=== PATIENT | male | born 1960 ===

== ENCOUNTER 2016-12-27 08:21 | Emergency (ER) | payer OTHER ==
--- NOTE | 2016-12-27 08:57 | UC ---
Respiratory Complaint HPI - HPI Summary HPI Summary: head cold x 2 weeks ago, improved, but yesterday developed sore throat and sense of congestion in his throat. Has a non-productive cough, but no chest pain or shortness of breath. Left work yesterday and slept, with some improvement today. No fever, headache, nausea or vomiting. - History of Current Complaint Chief Complaint: UCRespiratory Stated Complaint: SORE THROAT CHEST HEAVINESS Time Seen by Provider: 12/27/16 08:46 Hx Obtained From: Patient Onset/Duration: Gradual Onset, Lasting Days - 2 Timing: Constant Associated Signs And Symptoms: Positive: URI, Nasal Congestion - Risk Factors Pulmonary Embolism Risk Factors: Smoking Cardiac Risk Factors: Hypertension, Smoking - Allergies/Home Medications Allergies/Adverse Reactions: Allergies Allergy/AdvReac Type Severity Reaction Status Date / Time No Known Allergies Allergy Verified 12/27/16 08:28 Home Medications: Home Medications Amlodipine Besylate [Norvasc-] 5 mg PO DAILY 12/27/16 [History Confirmed ] Atorvastatin* [Lipitor*] 20 mg PO DAILY 12/27/16 [History Confirmed 12/27/16] Ibuprofen [Advil] 600 mg PO ONCE PRN 12/27/16 [History Confirmed 12/27/16] Metoprolol Succinate [Toprol Xl] 100 mg PO DAILY 12/27/16 [History Confirmed 12/14] PMH/Surg Hx/FS Hx/Imm Hx Endocrine History Of: Reports: Dyslipidemia Cardiovascular History Of: Reports: Hypertension - Surgical History Surgical History: Yes Surgery Procedure, Year, and Place: facial surgery-no feeling in Rt side of chin , clavical and ankle broken and reconstruction - Family History Known Family History: Positive: Cardiac Disease - father of stroke/atrial fibrillation., Other - mother living, age 85, healthy - Social History 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 Alcohol Use: None Substance Use Type: None Smoking Status (MU): Current Every Day Smoker Type: Cigars Amount Used/How Often: 4 pipes daily - Immunization History Most Recent Influenza Vaccination: not this season Review of Systems Constitutional: Fatigue Skin: Negative Eyes: Negative ENT: Sore Throat Respiratory: Cough Cardiovascular: Negative Gastrointestinal: Negative Genitourinary: Negative Motor: Negative Neurovascular: Negative Musculoskeletal: Negative Neurological: Negative Psychological: Negative All Other Systems Reviewed And Are Negative: Yes Physical Exam Triage Information Reviewed: Yes Appearance: Ill-Appearing - mildly unwell Vital Signs: Initial Vital Signs Temp 98.2 F 12/27/16 08:32 Pulse 57 12/27/16 08:32 Resp 18 12/27/16 08:32 BP 154/96 12/27/16 08:32 Pulse Ox 98 12/27/16 08:32 Eyes: Positive: Conjunctiva Clear ENT: Positive: Pharyngeal erythema, TMs normal Neck: Positive: Supple, Nontender, No Lymphadenopathy Respiratory: Positive: Lungs clear, Normal breath sounds Cardiovascular: Positive: RRR, No Murmur Psychological Exam: Normal UC Diagnostic Evaluation - Laboratory O2 Sat by Pulse Oximetry: 98 Respiratory Course/Dx - Course Course Of Treatment: symptomatic treatment; guaifensin as expectorant. - Differential Dx/Diagnosis Differential Diagnosis/HQI/PQRI: Bronchitis, Laryngitis, Lower Resp Infection, Sinusitis Provider Diagnoses: pharyngitis/laryngitis. Discharge - Discharge Plan Condition: Stable Disposition: HOME Patient Education Materials: Laryngitis (ED) Forms: *Work Release Additional Instructions: Guaifensin (600mg twice daily) might help with to relieve the phlegm in your throat. Use acetaminophen as needed for pain control. Follow up if you develop fever or shortness of breath.
[2016-12-27 09:17] VITALS: BP 150/106
== END 2016-12-27 09:17 | disposition home or self-care (01) ==
LOC: UCCORT 08:21
DX: J02.9 Acute pharyngitis, unspecified (principal); J04.0 Acute laryngitis; I10 Essential (primary) hypertension; F17.210 Nicotine dependence, cigarettes, uncomplicated
CPT/HCPCS: 99212; G0463

== ENCOUNTER 2017-04-25 07:23 | Emergency (ER) | payer OTHER ==
[2017-04-25 07:38] VITALS: BP 158/92
--- NOTE | 2017-04-25 08:44 | UC ---
Eye Complaint HPI - HPI Summary HPI Summary: 56 yo male with stye left upper lid x days now lid swollen and red and lids matted shut this am no fever no visual c/o - History of Current Complaint Chief Complaint: UCEye Stated Complaint: LEFT EYE COMPLAINT Time Seen by Provider: 04/25/17 08:16 Hx Obtained From: Patient Onset/Duration: Gradual Onset, Lasting Hours Timing: Constant Severity Initially: Mild Severity Currently: Moderate Pain Intensity: 2 Pain Scale Used: 0-10 Numeric Location of Injury: Eye Lid (upper) Character: Dull Aggravating Factor(s): Other - touch Associated Signs And Symptoms: Positive: Drainage (Purulent) - Allergies/Home Medications Allergies/Adverse Reactions: Allergies Allergy/AdvReac Type Severity Reaction Status Date / Time No Known Allergies Allergy Verified 04/25/17 07:33 PMH/Surg Hx/FS Hx/Imm Hx Previously Healthy: Yes Cardiovascular History: Hypertension - Surgical History Surgical History: Yes Surgery Procedure, Year, and Place: facial surgery-no feeling in Rt side of chin , clavical and ankle broken and reconstruction - Family History Known Family History: Positive: Cardiac Disease - father of stroke/atrial fibrillation., Hypertension, Other - mother living, age 85, healthy - Social History Alcohol Use: None Substance Use Type: None Smoking Status (MU): Current Every Day Smoker Type: Cigars Amount Used/How Often: 4 pipes daily - Immunization History Most Recent Influenza Vaccination: not this season Review of Systems Constitutional: Negative Skin: Negative Eyes: Other - left upper eyelid pain/swelling ENT: Negative Respiratory: Negative Cardiovascular: Negative Gastrointestinal: Negative Genitourinary: Negative Motor: Negative Neurovascular: Negative Musculoskeletal: Negative Neurological: Negative Psychological: Negative All Other Systems Reviewed And Are Negative: Yes Physical Exam Triage Information Reviewed: Yes Appearance: Well-Appearing, No Pain Distress, Well-Nourished Vital Signs: Initial Vital Signs Temp 97.8 F 04/25/17 07:31 Pulse 54 04/25/17 07:31 Resp 16 04/25/17 07:31 BP 158/92 04/25/17 07:31 Pulse Ox 100 04/25/17 07:31 Vital Signs Reviewed: Yes Eyes: Positive: Conjunctiva Clear, Other: - left lid swollen and red, no chalazion, he has a stye ENT: Positive: Hearing grossly normal, Pharynx normal, TMs normal. Negative: Nasal congestion, Nasal drainage, Tonsillar swelling, Tonsillar exudate, Trismus Neck: Positive: Supple, Nontender, No Lymphadenopathy Respiratory: Positive: Lungs clear, Normal breath sounds, No respiratory distress Cardiovascular: Positive: RRR, No Murmur. Negative: Tachycardia, Bradycardia Musculoskeletal: Positive: No Edema Neurological: Positive: Alert Psychological Exam: Normal Skin Exam: Normal Eye Complaint Course/Dx - Differential Dx/Diagnosis Provider Diagnoses: left upper lid stye and lid cellulitis Discharge - Discharge Plan Condition: Stable Disposition: HOME Prescriptions: Cephalexin CAP* [Keflex CAP*] 500 mg PO QID #20 cap Erythromycin OPHTH.OINT* [Ilotycin OPHTH.OINT*] 1 applic LEFT EYE QID #1 ophth.oint Patient Education Materials: Cellulitis (ED), Stye (ED) Referrals: Joe Chavez MD [Primary Care Provider] - Additional Instructions: warm compresses recheck in 4 days if not better
== END 2017-04-25 08:27 | disposition home or self-care (01) ==
LOC: UCCORT 07:23
DX: H00.014 Hordeolum externum left upper eyelid (principal); H00.034 Abscess of left upper eyelid; F17.290 Nicotine dependence, other tobacco product, uncomplicated
CPT/HCPCS: 99212; G0463

== ENCOUNTER 2017-09-28 08:37 | Emergency (ER) | payer OTHER ==
[2017-09-28 09:07] VITALS: BP 141/100
--- NOTE | 2017-09-28 10:02 | UC ---
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 TWO DAYS AGO EYE WAS PAINFUL , SWELLING WORSE TODAY. USED WARM PACKS WITH LITTLE RELIEF." Has had this happened. he was in earlier this yr w. similar sx and was treated w / abx and po and abx ointment w. good relief. denies trauma, no pain. no change in vision. no FB - History of Current Complaint Chief Complaint: UCEye Stated Complaint: RIGHT EYE COMPLAINT Time Seen by Provider: 09/28/17 10:00 - Allergies/Home Medications Allergies/Adverse Reactions: Allergies Allergy/AdvReac Type Severity Reaction Status Date / Time No Known Allergies Allergy Verified 09/28/17 08:48 PMH/Surg Hx/FS Hx/Imm Hx Previously Healthy: Yes - Surgical History Surgical History: Yes Surgery Procedure, Year, and Place: facial surgery-no feeling in Rt side of chin , clavical and ankle broken and reconstruction - Family History Known Family History: Positive: Cardiac Disease - father of stroke/atrial fibrillation., Hypertension, Other - mother living, age 85, healthy - Social History Alcohol Use: None Substance Use Type: None Smoking Status (MU): Current Every Day Smoker Type: Pipe Amount Used/How Often: 4 pipes daily - Immunization History Most Recent Influenza Vaccination: not this season Review of Systems Constitutional: Negative Skin: Negative Eyes: Eye Redness ENT: Negative Respiratory: Negative Cardiovascular: Negative Gastrointestinal: Negative Genitourinary: Negative Motor: Negative Neurovascular: Negative Musculoskeletal: Negative Neurological: Negative Psychological: Negative Is Patient Immunocompromised?: No All Other Systems Reviewed And Are Negative: Yes Physical Exam Triage Information Reviewed: Yes Appearance: Well-Appearing, No Pain Distress, Well-Nourished - very pleasant Vital Signs: Initial Vital Signs Temp 98.3 F 09/28/17 08:49 Pulse 70 09/28/17 08:49 BP 141/100 09/28/17 08:49 Pulse Ox 97 09/28/17 08:49 Vital Signs Reviewed: Yes Eyes: Positive: Other: - right upper lid with swelling and erythema. PERRL, mmm. no conj injection ENT: Positive: Pharynx normal, TMs normal Dental Exam: Normal Neck exam: Normal Neck: Positive: Supple, Nontender, No Lymphadenopathy Respiratory Exam: Normal Respiratory: Positive: Lungs clear, Normal breath sounds, No respiratory distress, No accessory muscle use Cardiovascular Exam: Normal Cardiovascular: Positive: RRR, No Murmur, Pulses Normal, Brisk Capillary Refill Eye Complaint Course/Dx - Course Course Of Treatment: treating w/ same abx & ointment he was treated w/ earlier this year - Differential Dx/Diagnosis Differential Diagnosis/HQI/PQRI: Conjunctivitis, Foreign Body, Periorbital Cellulitis, Orbital Cellulitis Provider Diagnoses: Rt eye stye Discharge - Discharge Plan Condition: Stable Disposition: HOME Prescriptions: Cephalexin CAP* [Keflex CAP*] 500 mg PO QID #20 cap Erythromycin TOPICAL GEL* [Erythromycin OPTH OINT*] 1 applic TOPICAL QID 5 Days #1 oint Patient Education Materials: Jessica (ED) Referrals: Joe Chavez MD [Primary Care Provider] - Additional Instructions: Follow up with your doctor in 3-4 days if not improved or if symptoms worsen.
== END 2017-09-28 10:26 | disposition home or self-care (01) ==
LOC: UCCORT 08:37
DX: H00.011 Hordeolum externum right upper eyelid (principal); F17.290 Nicotine dependence, other tobacco product, uncomplicated
CPT/HCPCS: 99212; G0463